=== PATIENT | female | born 2005 | race Caucasian/White ===

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

== ENCOUNTER 2025-01-02 11:35 | Outpatient (AMB) | payer MEDICAID, SELFPAY ==
[2025-01-02 11:45] VITALS: BP 123/83; PULSE 88; RESP 16; TEMP 36.6; O2SAT 98; BMI 35.0
--- NOTE | 2025-01-02 11:45 | OBCLNT_ITS ---
Vital Signs 01/02/25 11:45 Height 1.7 m Height Method Stated Weight 101.321 kg Weight Measurement Method Standing Scale BMI 35.0 BP 123/83 Blood Pressure Source Automatic Cuff Blood Pressure Location Left Upper Arm Position Sitting Respiration 16 Pulse 88 Pulse Source Monitor Temp 97.8 F Temp Source Oral Pulse Oximetry (%) 98 Oxygen Delivery Method Room Air Allergies/Home Meds Allergies & Medications Allergies No Known Allergies Allergy (Verified 01/02/25 11:47) Medication Reconciliation vits no.126-ferrous fum 28 mg iron-folic acid 800 mcg tablet (Classic ) 1 tab PO QDAY 90 days #90 tabs 11/30/24 [Rx Confirmed 01/02/25] pyridoxine (vitamin B6) 100 mg tablet 100 mg PO QDAY 90 days #90 tabs 11/30/24 [Rx Confirmed 01/02/25] Intake Visit Data Collection New Patient or Established: Established Patient (seen at [facility] within 3 years) Reason for Visit:: CARE Seen by Clinical Staff ONLY (RN/MA): No Powdered Metal Supervisor Required: No Do You Feel Safe at Home: Yes Authorities Contacted: N/A PCP or OBGYN visit in last 3 months: Yes Hx Now: Yes Pain Present Currently: Yes Pain Location: Abdomen (LOWER) Pain Scale Used: Mart-Martinez/Numerical Pain scale:: 6 Smoking Status Smoking Status: Never smoker Questionnaires Covid-19 Vaccine Questionnaire Has patient been vacinated for Covid-19 Have you been vacinated for Covid-19: Yes PHQ-9 PHQ-2 Over the last 2 weeks, how often have you been bothered by any of the following problems? 1. Little interest or pleasure in doing things: not at all 2. Feeling down, depressed, or hopeless: not at all Total score: 0 PHQ-9 3. Trouble falling or staying asleep, or sleeping too much: Not at all 4. Feeling tired or having little energy: Not at all 5. Poor appetite or overeating: Not at all 6. Feeling bad about yourself - or that you are a failure or have let yourself or your family down: Not at all 7. Trouble concentrating on things, such as reading the newspaper or watching television: Not at all 8. Moving or speaking so slowly that other people could have noticed? - Or the opposite - being so fidgety or restless that you have been moving around a lot more than usual: not at all 9. Thoughts that you would be better off or of hurting yourself in some way: Not at all Total score: 0 Source: Developed by Drs. Ken Vincent, Parvin Aviles, Terrence España and colleagues, with an educational lurdes from [employer]. Depression screen completed yes Social History Living Situation History Lives With: Family Housing: House Tobacco History Smoking Status: Never smoker Second Hand Smoke Exposure: No Alcohol History Alcohol Intake: Never Domestic Abuse History Do You Feel Safe at Home: Yes Care OB Visit Log OB Flowsheet Initial Weight: Not Recorded Date -?-?-?-?-?-?-?-?-?-?-?-?- EGA Weight BP Alb Glu CTX Pres Fundal ht FHR Mov Dilation Station Effacement Hx Notes Visit Note 11/24/24 -?-?-?-?-?-?-?-?-?-?-?-?- 10w 1d 103.873 kg 123/80 123/80 Patient reports LMP of September 14, consistent with 10 weeks 1 day gestation. History of vaginal bleeding 3 weeks ago, which resolved spontaneously. Previous ultrasound at 6 weeks showed no detectable heartbeat. Current status needs confirmation. - Schedule ultrasound to verify gestational age and viability - Order initial labs including complete blood count, anemia screening, antibody screen, and infection screening - Genetic testing for Down Syndrome and sex determination - Schedule anatomy scan at 16-17 weeks w [facility] - Schedule glucose tolerance test at 24 weeks - Follow-up appointment next Thursday for lab results review 11/30/24 -?-?-?-?-?-?-?-?-?-?-?-?- 11w 0d 103.986 kg 127/87 - Susy Hodge is a 1, para 0 patient at 11 weeks and 0 days gestation presenting for ultrasound and lab results review. - She reports worsening nausea since her last visit. - She denies any current illness. - She denies any social habits. - She denies any prior surgeries. - NIPT genetic testing to be performed for Down syndrome (trisomy 21), trisomy 18, and trisomy 13 screening; gender determination available - Prescribe Zofran for one month for gigi sea management - Prescribe Diclegis as first-line treat ment for nausea with baseline coverage, use Zofran as needed on top of it - Referral to [facility] for angela l-2 high-resolution ultrasound with 3-D imaging - Follow-up appointment in 4 weeks - Continue vitamins - Activity restrictions: avoid lifting v nagi heavy weights (not more than body weight) and anything hitting the stomach; gym activities including squats permitted with weight limitations 01/02/25 -?-?-?-?-?-?-?-?-?-?-?-?- 15w 5d 101.321 kg 123/83 - She reports severe ongoing nausea despite taking Diclegis and Zofran. - She went to the emergency room [facility] because she was vomiting up her anti-nausea medications. - She experiences occasional cramping bu t denies any spotting. - She continues taking her vitamins. - Prescribe Phenergan for severe nausea and vomiting (available as oral medication or rectal suppository as backup when unable to keep oral medications down) - Continue current vitamins - Order AFP (alpha-fetoprotein) testing to screen for spinal cord and brain defects - Schedule 20-week second trimester ultr asound at [place] (referral already faxed) - Follow up in 4 weeks - If no improvement within 2-3 days of s tarting Phenergan, patient to call for f urther management AILYN Calculator Estimated Delivery Date Method Current WG Current Estimate 06/21/25 LMP (Certain) 20w 3d Other Estimates 06/17/25 Ultrasound #1 21w 0d Notes Visit Date: 11/30/24 Last Updated by: Anthony Gage MD - Ultrasound (11/28/2024): CRL corresponds to 11 weeks and 2 days gestational age, heart rate 162 bpm - Initial panel (11/29/2024): - Hepatitis B: negative - Hepatitis C: negative - RPR: non-reactive - Rubella: immune - ABO blood group: positive - Rh factor: negative - Antibody screen: negative - HIV: negative - Gonorrhea: negative - Chlamydia: negative - CBC: Hemoglobin 13.0 g/dL, Hematocrit 39%, Platelets 305 - Hemoglobin A1c: 4.7% - Urine culture: negative Office Procedures OBC Clinic LOC & Office Proc's Nursing/Assessment Patient Status: Established Patient OB Clinic Nursing Assessment: Medication Reconciliation, Update PMH in EMR and Vital Signs OB Clinic Coordination of Care: Complex Care and Chronic Disease 1-5, Consent ,records obtained, informed consent, Education Simp Pt/Fam, 1 Ins Authorization, Lab and Imaging orders, Results/Orders obtained and Staff clarify orders Special Needs: Heart tones Established Patient Charge Established Patient Point Assignment: 150 Established Patient Point Charge: EP Level 4 (120-155) Assessment & Plan Diagnosis / Problem List (1) Uterine size date discrepancy: Status: Acute (2) Supervision of high risk , unspecified, first trimester: Status: Acute Plan Problem List - , first trimester - Hyperemesis gravidarum Assessment 15 weeks 5 days intrauterine in a 1 para 0 patient with severe nausea and vomiting requiring emergency room visit due to inability to retain oral medications including Diclegis and Zofran. Patient reports intermittent cramping. heart rate is 146 bpm which is normal. NIPT results are negative for all trisomies with male gender. SMA testing and cystic fibrosis screening are both negative. Plan - Prescribe Phenergan for severe nausea and vomiting (available as oral medication or rectal suppository as backup when unable to keep oral medications down) - Continue current vitamins - Order AFP (alpha-fetoprotein) testing to screen for spinal cord and brain defects - Schedule 20-week second trimester ultrasound at [place] (referral already faxed) - Follow up in 4 weeks - If no improvement within 2-3 days of starting Phenergan, patient to call for further management This format is not applicable as the patient is at 15 weeks and 5 days gestational age, which is less than 20 weeks.
== END 2025-01-02 12:00 | disposition home or self-care (01) ==
LOC: HODSOBC 11:35
PROVIDERS: Supervising Provider Obstetrics & Gynecology; Visit Provider Obstetrics & Gynecology
DX: O09.892 Supervision of other high risk pregnancies, second trimester (principal); O26.842 Uterine size-date discrepancy, second trimester; O21.0 Mild hyperemesis gravidarum; Z3A.15 15 weeks gestation of pregnancy
CPT/HCPCS: 99214; G0463

== ENCOUNTER 2025-02-07 10:39 | Outpatient (AMB) | payer MEDICAID, SELFPAY ==
[2025-02-07 10:52] VITALS: BP 125/62; PULSE 107; RESP 18; TEMP 36.2; O2SAT 98; BMI 36.1
--- NOTE | 2025-02-07 10:52 | OBCLNT_ITS ---
Vital Signs 02/07/25 10:52 Height 1.7 m Height Method Stated Weight 104.553 kg Weight Measurement Method Standing Scale BMI 36.1 BP 125/62 Blood Pressure Source Automatic Cuff Blood Pressure Location Left Upper Arm Position Sitting Respiration 18 Pulse 107 H Pulse Source Monitor Temp 97.2 F Temp Source Oral Pulse Oximetry (%) 98 Oxygen Delivery Method Room Air Allergies/Home Meds Allergies & Medications Allergies No Known Allergies Allergy (Verified 03/08/25 11:14) Medication Reconciliation cholecalciferol (vitamin D3) 125 mcg (5,000 unit) capsule 125 mcg PO QDAY 90 days #90 caps 03/08/25 [Rx Confirmed 03/08/25] folic acid 1 mg tablet 4 mg (4 x 1 mg) PO QDAY 90 days #360 tabs 03/08/25 [Rx Confirmed 03/08/25] ondansetron 4 mg disintegrating tablet 4 mg PO Q6H PRN nausea and vomiting 30 days #120 tabs 03/08/25 [Rx Confirmed 03/08/25] vits no.126-ferrous fum 28 mg iron-folic acid 800 mcg tablet (Classic ) 1 tab PO QDAY 90 days #90 tabs 03/08/25 [Rx Confirmed 03/08/25] pyridoxine (vitamin B6) 100 mg tablet 100 mg PO QDAY 90 days #90 tabs 03/08/25 [Rx Confirmed 03/08/25] Immunizations Immunizations Flu Vaccine in the Last 12 Months: No Flu Vaccine Exclusion Criteria: No Exclusion Criteria Care OB Visit Log OB Flowsheet Initial Weight: Not Recorded Date -?-?-?-?-?-?-?-?-?-?-?-?- EGA Weight BP Alb Glu CTX Pres Fundal ht FHR Mov Dilation Station Effacement Hx Notes Visit Note 11/24/24 -?-?-?-?-?-?-?-?-?-?-?-?- 10w 1d 103.873 kg 123/80 123/80 Patient reports LMP of September 14, consistent with 10 weeks 1 day gestation. History of vaginal bleeding 3 weeks ago, which resolved spontaneously. Previous ultrasound at 6 weeks showed no detectable heartbeat. Current status needs confirmation. - Schedule ultrasound to verify gestational age and viability - Order initial labs including complete blood count, anemia screening, antibody screen, and infection screening - Genetic testing for Down Syndrome and sex determination - Schedule anatomy scan at 16-17 weeks w [facility] in [place] - Schedule glucose tolerance test at 24 weeks - Follow-up appointment next Thursday for lab results review 11/30/24 -?-?-?-?-?-?-?-?-?-?-?-?- 11w 0d 103.986 kg 127/87 - Susy Hodge is a 1, para 0 patient at 11 weeks and 0 days gestation presenting for ultrasound and lab results review. - She reports worsening nausea since her last visit. - She denies any current illness. - She denies any social habits. - She denies any prior surgeries. - NIPT genetic testing to be performed for Down syndrome (trisomy 21), trisomy 18, and trisomy 13 screening; gender determination available - Prescribe Zofran for one month for gigi sea management - Prescribe Diclegis as first-line treat ment for nausea with baseline coverage, use Zofran as needed on top of it - Referral to [facility] for angela l-2 high-resolution ultrasound with 3-D imaging - Follow-up appointment in 4 weeks - Continue vitamins - Activity restrictions: avoid lifting v nagi heavy weights (not more than body weight) and anything hitting the stomach; gym activities including squats permitted with weight limitations 01/02/25 -?-?-?-?-?-?-?--?-?-?-?-?- 15w 5d 101.321 kg 123/83 - She reports severe ongoing nausea despite taking Diclegis and Zofran. - She went to the emergency room [facility] because she was vomiting up her anti- nausea medications. - She experiences occasional cramping bu t denies any spotting. - She continues taking her vitamins. - Prescribe Phenergan for severe nausea and vomiting (available as oral medication or rectal suppository as backup when unable to keep oral medications down) - Continue current vitamins - Order AFP (alpha-fetoprotein) testing to screen for spinal cord and brain defects - Schedule 20-week second trimester ultr asound at [place] (referral already faxed) - Follow up in 4 weeks - If no improvement within 2-3 days of s tarting Phenergan, patient to call for further management 02/07/25 -?-?-?-?-?-?-?-?-?-?-?-?- 20w 6d 104.553 kg 125/62 150 - She has a history of severe hyperemesis gravidarum that has required multiple emergency room visits. - Patient reports nausea that goes up an d down in frequency, with expectation that episodes should become less frequent as progresses. - She is currently taking Zofran for gigi sea management. - Patient experienced spotting approxima tely 2 weeks ago that resolved spontaneously. - Spotting was described as random wit hout specific triggers such as walking, standing, or travel. - She denies current cramping. - Continue Zofran for nausea management with additional prescription and refills - Obtain one-hour glucose screening test for diabetes screening - Await call from [facility] in [place] for anatomy level 2 ultrasound (referral already sent) - Schedule follow-up appointment with Dr Ryan Melchor's office 03/08/25 -?-?-?-?-?-?-?-?-?-?-?-?- 25w 0d 106.594 kg 115/77 140 - Patient reports feeling like she is getting a cold. - She continues to experience nausea and inquired about ongoing need for anti- nausea medication. - Patient requests prescription refills for folic acid and vitamin D supplements. - She requested a flu shot due to concer ns about getting sick, noting that almost everyone she has encountered recently has been getting ill. - Patient attributes the increased illne ss in her community to the weather and constant fog. - Administer inf luenza vaccine today - Prescribe vitamin D and folic acid ref ills - Prescribe cold medicine - Schedule follow-up appointment in 4 we eks - Order new labs at 30 weeks gestation AILYN Calculator Estimated Delivery Date Method Current WG Current Estimate 06/21/25 LMP (Certain) 26w 1d Other Estimates 06/17/25 Ultrasound #1 26w 5d Notes Visit Date: 03/08/25 Last Updated by: Anthony Gage MD Laboratory, Imaging, and Diagnostic Test Results - One-hour glucose: 75 (normal up to 139) - [facility] ultrasound (03/06/2025): - Single living fetus - Gestational age: 24 weeks 1 day (corresponds to AILYN 06/21/2025) - Estimated weight: 671 grams (43rd percentile) - Normal growth parameters consistent with clinical dates - Amniotic fluid: within normal limits - Placenta: posterior - Cervical length: 3.22 cm, no funneling - presentation: cephalic - anatomy: limited detailed evaluation due to maternal habitus Visit Date: 11/30/24 Last Updated by: Anthony Gage MD - Ultrasound (11/28/2024): CRL corresponds to 11 weeks and 2 days gestational age, heart rate 162 bpm - Initial panel (11/29/2024): - Hepatitis B: negative - Hepatitis C: negative - RPR: non-reactive - Rubella: immune - ABO blood group: positive - Rh factor: negative - Antibody screen: negative - HIV: negative - Gonorrhea: negative - Chlamydia: negative - CBC: Hemoglobin 13.0 g/dL, Hematocrit 39%, Platelets 305 - Hemoglobin A1c: 4.7% - Urine culture: negative Office Procedures OBC Clinic LOC & Office Proc's Nursing/Assessment Patient Status: Established Patient OB Clinic Nursing Assessment: Medication Reconciliation, Update PMH in EMR and Vital Signs OB Clinic Coordination of Care: Consent,records obtained, informed consent, Education Simp Pt/Fam, Lab and Imaging orders, Results/Orders obtained and Staff clarify orders Special Needs: Heart tones Established Patient Charge Established Patient Point Assignment: 110 Established Patient Point Charge: EP Level 3 (80-115) Assessment & Plan Diagnosis / Problem List (1) Supervision of high risk , unspecified, second trimester: Status: Acute Plan Problem List - Hyperemesis gravidarum - Vaginal spotting in Assessment 20 weeks and 6 days gestation with history of severe hyperemesis gravidarum requiring multiple emergency department visits. Patient reports intermittent nausea with variable frequency, currently managed with Zofran. Episode of spotting occurred approximately 2 weeks ago which resolved spontaneously without identifiable triggers. heart rate is normal at 146-148 beats per minute. Plan - Continue Zofran for nausea management with additional prescription and refills - Obtain one-hour glucose screening test for diabetes screening - Await call from [facility] for anatomy level 2 ultrasound (referral already sent) - Schedule follow-up appointment with Dr. Melchor's office 1. Progress Reviewed gestational age (20 weeks 6 days), growth, and heart rate (146-148 bpm, normal). Planned frequent visits (every 2 weeks until 36 weeks, then weekly). 2. Instructed patient to monitor movements and report decreases immediately. 3. Testing Counseled on routine third-trimester labs per guidelines. Ordered glucose screening test for diabetes screening. Discussed potential need for ultrasound or monitoring based on risk factors. Referred for anatomy level 2 ultrasound to be performed between now and 26-28 weeks. 4. Preeclampsia Precaution Educated on preeclampsia signs: severe headache, vision changes, right upper quadrant pain, sudden swelling. Advised urgent reporting of symptoms and discussed blood pressure monitoring if high risk. 5. Labor Precautions Reviewed labor signs: regular contractions, pelvic pressure, back pain, bleeding, or fluid leakage. Instructed to seek immediate care for these symptoms. 6. Lifestyle and Delivery Preparation Reinforced vitamins, nutrition, and safe activity. Discussed plan, pain management, and . Advised on labor preparation (e.g., hospital bag) and expectations. 7. Psychosocial Support Assessed emotional well-being and offered resources for mental health or parenting support.
== END 2025-02-07 11:23 | disposition home or self-care (01) ==
LOC: HODSOBC 10:39
PROVIDERS: Supervising Provider Obstetrics & Gynecology; Visit Provider Obstetrics & Gynecology
DX: O09.892 Supervision of other high risk pregnancies, second trimester (principal); O21.0 Mild hyperemesis gravidarum; O46.92 Antepartum hemorrhage, unspecified, second trimester; Z3A.20 20 weeks gestation of pregnancy
CPT/HCPCS: 99213; G0463

== ENCOUNTER 2025-03-08 10:58 | Outpatient (AMB) | payer MEDICAID, SELFPAY ==
[2025-03-08 11:13] VITALS: BP 115/77; PULSE 85; RESP 18; TEMP 37.1; O2SAT 97; BMI 36.8
--- NOTE | 2025-03-08 11:13 | OBCLNT_ITS ---
Vital Signs 03/08/25 11:13 Height 1.7 m Height Method Stated Weight 106.594 kg Weight Measurement Method Standing Scale BMI 36.8 BP 115/77 Blood Pressure Source Automatic Cuff Blood Pressure Location Right Upper Arm Position Sitting Respiration 18 Pulse 85 Pulse Source Monitor Temp 98.8 F Temp Source Temporal Artery Scan Pulse Oximetry (%) 97 Oxygen Delivery Method Room Air Allergies/Home Meds Allergies & Medications Allergies No Known Allergies Allergy (Verified 03/08/25 11:14) Medication Reconciliation cholecalciferol (vitamin D3) 125 mcg (5,000 unit) capsule 125 mcg PO QDAY 90 days #90 caps 03/08/25 [Rx Confirmed 03/08/25] folic acid 1 mg tablet 4 mg (4 x 1 mg) PO QDAY 90 days #360 tabs 03/08/25 [Rx Confirmed 03/08/25] ondansetron 4 mg disintegrating tablet 4 mg PO Q6H PRN nausea and vomiting 30 days #120 tabs 03/08/25 [Rx Confirmed 03/08/25] vits no.126-ferrous fum 28 mg iron-folic acid 800 mcg tablet (Classic ) 1 tab PO QDAY 90 days #90 tabs 03/08/25 [Rx Confirmed 03/08/25] promethazine 6.25 mg/5 mL oral syrup 12.5 mg (10 mL) PO Q6H PRN allergy symptoms 5 days #200 mL 03/08/25 [Rx Confirmed 03/08/25] pyridoxine (vitamin B6) 100 mg tablet 100 mg PO QDAY 90 days #90 tabs 03/08/25 [Rx Confirmed 03/08/25] Immunizations Immunizations Flu Vaccine in the Last 12 Months: Yes Date of most recent flu vaccination: 03/08/25 Flu Vaccine Exclusion Criteria: Already Received Care OB Visit Log OB Flowsheet Initial Weight: Not Recorded Date -?-?-?-?-?-?-?-?-?-?-?-?- EGA Weight BP Alb Glu CTX Pres Fundal ht FHR Mov Dilation Station Efface ment Hx Notes Visit Note 11/24/24 -?-?-?-?-?-?-?-?-?-?-?-?- 10w 1d 103.873 kg 123/80 123/80 Patient reports LMP of September 14, consistent with 10 weeks 1 day gestation. History of vaginal bleeding 3 weeks ago, which resolved spontaneously. Previous ultrasound at 6 weeks showed no detectable heartbeat. Current status needs confirmation. - Schedule ultrasound to verify gestational age and viability - Order initial labs including complete blood count, anemia screening, antibody screen, and infection screening - Genetic testing for Down Syndrome and sex determination - Schedule anatomy scan at 16-17 weeks w [facility] in [place] - Schedule glucose tolerance test at 24 weeks - Follow-up appointment next Thursday for lab results review 11/30/24 -?-?-?-?-?-?-?-?-?-?-?-?- 11w 0d 103.986 kg 127/87 - Susy Hodge is a 1, para 0 patient at 11 weeks and 0 days gestation presenting for ultrasound and lab results review. - She reports worsening nausea since her last visit. - She denies any current illness. - She denies any social habits. - She denies any prior surgeries. - NIPT genetic testing to be performed for Down syndrome (trisomy 21), trisomy 18, and trisomy 13 screening; gender determination available - Prescribe Zofran for one month for gigi sea management - Prescribe Diclegis as first-line treat ment for nausea with baseline coverage, use Zofran as needed on top of it - Referral to [facility] for danoe l-2 high-resolution ultrasound with 3-D imaging - Follow-up appointment in 4 weeks - Continue vitamins - Activity restrictions: avoid lifting v nagi heavy weights (not more than body weight) and anything hitting the stomach; gym activities including squats permitted with weight limitations 01/02/25 -?-?-?-?-?-?-?-?-?-?-?-?- 15w 5d 101.321 kg 123/83 - She reports severe ongoing nausea despite taking Diclegis and Zofran. - She went to the emergency [facility] because she was vomiting up her anti- nausea medications. - She experiences occasional cramping bu t denies any spotting. - She continues taking her vitamins. - Prescribe Phenergan for severe nausea and vomiting (available as oral medication or rectal suppository as backup when unable to keep oral medications down) - Continue current vitamins - Order AFP (alpha-fetoprotein) testing to screen for spinal cord and brain defects - Schedule 20-week second trimester ultr asound at [place] (referral already faxed) - Follow up in 4 weeks - If no improvement within 2-3 days of s tarting Phenergan, patient to call for further management 03/08/25 -?-?-?-?-?-?-?-?-?-?-?-?- 25w 0d 106.594 kg 115/77 140 - Patient reports feeling like she is getting a cold. - She continues to experience nausea and inquired about ongoing need for anti- nausea medication. - Patient requests prescription refills for folic acid and vitamin D supplements. - She requested a flu shot due to concer ns about getting sick, noting that almost everyone she has encountered recently has been getting ill. - Patient attributes the increased illne ss in her community to the weather and constant fog. - Administer inf luenza vaccine today - Prescribe vitamin D and folic acid ref ills - Prescribe cold medicine - Schedule follow-up appointment in 4 we eks - Order new labs at 30 weeks gestation AILYN Calculator Estimated Delivery Date Method Current WG Current Estimate 06/21/25 LMP (Certain) 25w 0d Other Estimates 06/17/25 Ultrasound #1 25w 4d Notes Visit Date: 03/08/25 Last Updated by: Anthony Gage MD Laboratory, Imaging, and Diagnostic Test Results - One-hour glucose: 75 (normal up to 139) - [facility] ultrasound (03/06/2025): - Single living fetus - Gestational age: 24 weeks 1 day (corresponds to AILYN 06/21/2025) - Estimated weight: 671 grams (43rd percentile) - Normal growth parameters consistent with clinical dates - Amniotic fluid: within normal limits - Placenta: posterior - Cervical length: 3.22 cm, no funneling - presentation: cephalic - anatomy: limited detailed evaluation due to maternal habitus Visit Date: 11/30/24 Last Updated by: Anthony Gage MD - Ultrasound (11/28/2024): CRL corresponds to 11 weeks and 2 days gestational age, heart rate 162 bpm - Initial panel (11/29/2024): - Hepatitis B: negative - Hepatitis C: negative - RPR: non-reactive - Rubella: immune - ABO blood group: positive - Rh factor: negative - Antibody screen: negative - HIV: negative - Gonorrhea: negative - Chlamydia: negative - CBC: Hemoglobin 13.0 g/dL, Hematocrit 39%, Platelets 305 - Hemoglobin A1c: 4.7% - Urine culture: negative Office Procedures [facility] LOC & Office Proc's Nursing/Assessment Patient Status: Established Patient OB Clinic Nursing Assessment: Medication Reconciliation, Update PMH in EMR and Vital Signs OB Clinic Coordination of Care: Complex Care and Chronic Disease 1-5, Education Complex Pt/Fam, Consent,records obtained, informed consent, Lab and Imaging orders, Results/Orders obtained and Staff clarify orders Special Needs: Heart tones Established Patient Charge Established Patient Point Assignment: 140 Established Patient Point Charge: EP Level 4 (120-155) Injection/Vaccine Admin Admin 1st Vaccine: Yes Immunizations flu vac ts (6mos up)-PF 45 mcg(15mcg x3)/0.5 mL IM syringe Performing Provider: Anthony Gage MD Performing Location: [facility] Administered by: Zoe Kruger MA on 03/08/25 13:25 Dose Route Admin Location Dispensed Lot Number Expiration Date Pack age [facility] [employer] 0.5 mL IM Right Deltoid 0.5 mL [id number] 09/19/25 [id number] [id number] [employer] VIS Given Date VIS Provided VIS Publication Date 03/08/25 Single Vaccine 24 Eligibility Eligibility Date Funding Source Public Non-[facility] Assessment & Plan Diagnosis / Problem List (1) Supervision of high risk , unspecified, second trimester: Status: Acute (2) Hyperemesis gravidarum: Status: Acute Plan Problem List - at 25 weeks gestation - Cold symptoms Assessment 25-year-old at 25 weeks 0 days gestation with normal one-hour glucose tolerance test result of 75 mg/dL. Recent MFM ultrasound at 24 weeks 1 day shows single living fetus with normal growth parameters (estimated weight 671 grams, 43rd percentile), normal amniotic fluid volume, cephalic presentation, posterior placenta, and cervical length of 3.22 cm without funneling. heart rate of 140 bpm is within normal limits. Patient reports cold-like symptoms. Plan - Administer influenza vaccine today - Prescribe vitamin D and folic acid refills - Prescribe cold medicine - Schedule follow-up appointment in 4 weeks - Order new labs at 30 weeks gestation 1. Progress Reviewed gestational age, growth, and heart rate. Planned frequent visits (every 2 weeks until 36 weeks, then weekly). 2. Instructed patient to monitor movements and report decreases immediately. 3. Testing Counseled on routine third-trimester labs per guidelines. Discussed potential need for ultrasound or monitoring based on risk factors. 4. Preeclampsia Precaution Educated on preeclampsia signs: severe headache, vision changes, right upper quadrant pain, sudden swelling. Advised urgent reporting of symptoms and discussed blood pressure monitoring if high risk. 5. Labor Precautions Reviewed labor signs: regular contractions, pelvic pressure, back pain, bleeding, or fluid leakage. Instructed to seek immediate care for these symptoms. 6. Lifestyle and Delivery Preparation Reinforced vitamins, nutrition, and safe activity. Discussed plan, pain management, and . Advised on labor preparation (e.g., hospital bag) and expectations. 7. Psychosocial Support Assessed emotional well-being and offered resources for mental health or parenting support.
== END 2025-03-08 11:36 | disposition home or self-care (01) ==
LOC: HODSOBC 10:58
PROVIDERS: Supervising Provider Obstetrics & Gynecology; Visit Provider Obstetrics & Gynecology
DX: O09.892 Supervision of other high risk pregnancies, second trimester (principal); O21.0 Mild hyperemesis gravidarum; Z3A.25 25 weeks gestation of pregnancy; Z23 Encounter for immunization
CPT/HCPCS: 90471; 90686; 99214; G0463; J9060